=== PATIENT | male | born 1980 | race African-American/Black ===

== ENCOUNTER 2024-01-30 05:15 | Observation (INO) ==
--- NOTE | 2024-01-24 13:32 | Anesthesiology Consultation ---
Date of Service January 24, 2024 Assessment & Plan (1) Encounter for pre-operative examination: Chart Review Chart Review: Acceptable Risk for Surgery and Patient NOT seen in Pre Admission Testing - Will leave to anesthesiologist's discretion DOS if labs and/or EKG needed -Infectious Disease screening: Per PAT nursing assessment on 01/16/24. Pt resides at [facility]. No known infectious disease contacts in past 10 days or current infectious disease symptoms. No recent travel outside the country. Will order [place] for DOS History Surgery Operation Date: 01/30/24 07:00 Proposed Procedures p Right Shoulder Arthroscopy, Rotator Cuff Repair, Distal Clavicle Excision - Elvis Gordillo MD Height/Weight Height: 5 ft 9 in Weight: 76.657 kg Allergies Allergy/AdvReac Type Severity Reaction Status Date / Time shellfish derived Allergy Severe Anaphylaxis Verified 01/16/24 11:27 wool Allergy listed in Verified 01/16/24 11:27 medical hx Medications Home Medications Medication Instructions Recorded Confirmed Last Taken levothyroxine 100 mcg capsule 100 mcg PO DAILY 04/09/21 01/16/24 Unknown pantoprazole 20 mg tablet,delayed 20 mg PO DAILY 04/09/21 01/16/24 Unknown release Past Medical History Medical History Allergic rhinitis Anxiety Cervicalgia GERD (gastroesophageal reflux disease) Hypothyroidism Inmate in correctional facility Insomnia Major depressive disorder PTSD (post-traumatic stress disorder) Shoulder pain, right Past Surgical History Surgical History Surgical history unknown Social History Smoking Status: Unknown if ever smoked
[~2024-01-30 05:15] MED LIST: Patient's HEIGHT &/or WEIGHT Needed SCH; VANCOMYCIN CONSULT ACTIVE PRN
--- OUTSIDE RECORDS SUMMARY | 2024-01-30 05:25 | External Medical Summary | Continuity of Care Document ---
Author Name Unknown Organization [facility] [address] Address [address] [place], [place] [id number] Encounter [facility] [id number] Date(s): 01/12/24 - 01/12/24 [facility] [address] [facility] [address] [facility] [address] [place] [id number] Encounter Diagnosis Rotator cuff tear, right(Discharge Diagnosis) - 01/12/24 Discharge Disposition: Home or Self Care Attending Physician: IDANIA Donahue, Brigitte Roper Referring Physician: MD Rand, Elvis Broussard Allergies, Adverse Reactions, Alerts No Known Medication Allergies Substance Reaction Severity Status shellfish hives and cant breathe Activ e wool itch bumps Active Medications ibuprofen Start: 02/17/21 12:10:00 EDT Start Date: 02/17/21 Status: Ordered levothyroxine Start: 02/17/21 12:10:00 EDT, 100 mcg =, PO, Daily Start Date: 02/17/21 Status: Ordered pantoprazole Start: 02/17/21 12:10:00 EDT, 20 mg =, PO, Daily Start Date: 02/17/21 Status: Ordered Mental Status 01/12/24 Barriers to Learning one year None evide nt Mandatory Health Literacy Documentation Yes Health Literacy Communication Barriers N ever Primary Language Lao Problem List Condition Confirmation Course Effective Dates Status Health St atus Informant Neck pain Confirmed Active Rotator cuff tear, right Confirmed Active Left shoulder pain Confirmed Active Cervical spinal stenosis Confirmed Active Diagnosis Diagnosis Type Effective Dates Health Status Cl inical Service Informant Rotator cuff tear, right Discharge Diagnosis 01/12/24 Procedures Procedure Date Related Diagnosis Body Site Status Procedure - left elbow Co mpleted Vital Signs Most recent to oldest [Reference Range]: 1 Height 177 cm (01/12/24 10:56 AM) Patient Weight 78 kg (01/12/24 10:56 AM) Body Mass Index 24.9 kg/m2 (01/12/24 10:56 AM) Temperature [36.5-37.9 DegC] 36.4 DegC *LOW* (01/12/24 10:56 AM) Heart Rate 60 bpm (01/12/24 10:56 AM) Blood Pressure 140/80mmHg (01/12/24 10:56 AM) Cuff Pulse Pressure 60 mmHg (01/12/24 10:56 AM) Social History Social History Type Response Smoking Status Never smoked cigaret musa Sex Male Patient Care team information Care Team Related Persons Name: INDU NARAYAN Address: home [address] [place] [id number]
--- OUTSIDE RECORDS SUMMARY | 2024-01-30 05:25 | External Medical Summary | Continuity of Care Document ---
Author Name Unknown Organization [facility] [address] [place] [phone] Encounter [facility] [id number] Date(s): 10/02/23 - 10/02/23 [facility] JACY GRIFFITHS [address] [facility] [place] [address] [place] [address] [phone] Encounter Diagnosis Cervical stenosis of spine(Discharge Diagnosis) - 10/02/23 Right shoulder pain(Discharge Diagnosis) - 10/02/23 Discharge Disposition: Home or Self Care Attending Physician: MD Emelina, Calvin Saleh Referring Physician: DO Roldan Andrew J Allergies, Adverse Reactions, Alerts No Known Medication Allergies Substance Reaction Severity Status shellfish hives and cant breathe Activ e wool itch bumps Active Assessment and Plan Extracted from: Title:Follow Up Visit Author:IDANIA Preston, Supriya Sawant Date:10/02/23 This is a shared visit withDr. Tarango, please see his note for assessment and plan. Medications ibuprofen Start: 02/17/21 12:10:00 EDT Start Date: 02/17/21 Status: Ordered levothyroxine Start: 02/17/21 12:10:00 EDT, 100 mcg =, PO, Daily Start Date: 02/17/21 Status: Ordered meloxicam 15 mg oral tablet Start: 04/28/23 10:23:00 EDT, 1 tab, PO, Daily Start Date: 04/28/23 Status: Ordered Minipress Start: 11/28/22 13:27:00 EDT Start Date: 11/28/22 Status: Ordered pantoprazole Start: 02/17/21 12:10:00 EDT, 20 mg =, PO, Daily Start Date: 02/17/21 Status: Ordered SINEquan 10 mg oral capsule Start: 07/04/22 9:38:00 EDT, 1 cap, PO, Daily Start Date: 07/04/22 Status: Ordered Mental Status 10/02/23 Barriers to Learning one year None evide nt Mandatory Health Literacy Documentation Yes Health Literacy Communication Barriers N ever Primary Language Somali Problem List Condition Confirmation Course Effective Dates Status Health St atus Informant Neck pain Confirmed Active Rotator cuff tear, right Confirmed Active Left shoulder pain Confirmed Active Cervical spinal stenosis Confirmed Active Diagnosis Diagnosis Type Effective Dates Health Status Cl inical Service Informant Cervical stenosis of spine Discharge Diagnosis 10/02/23 Right shoulder pain Discharge Diagnosis 10/02/23 Procedures Procedure Date Related Diagnosis Body Site Status Procedure - left elbow Co mpleted Results Radiology Reports * Exam Date Time Procedure Performing Provider Status 10/02/23 11:20 AM XR Spine Cervical 2 or 3 Views Miya Kumar; Final Notes: (XR Spine Cervical 2 or 3 Views) Reason For Exam: neck pain XR Spine Cervical 2 or 3 Views EXAMINATION: XR Spine Cervical 2 or 3 Views CLINICAL HISTORY: M54.2: Cervicalgia; M54.2: Cervicalgia; neck pain COMPARISON: None FINDINGS: Right AP and lateral views of the cervical spine. On lateral view the cervical spine is visualized from craniocervical junction to T1. There is mild straightening without listhesis. There is normal vertebral body height. Moderate degenerative disc change extending from C3 through C7 where there is variable loss of disc space height, endplate osteophytes and uncinate spurring, most prominent at C3-4 and C5-6. Minimal degenerative changes of facetjoints. Precervical soft tissues are not thickened. Upper lungs are clear. IMPRESSION: Moderate multilevel degenerative disc changes, most prominent at C3-4 and C5-6. Workstation ID: [id number] Final Dictated by:MD Anna Pamela L Dictated DT/TM:10/02/2023 12:29 Signed by:MD Anna Pamela L Signed (Electronic Signature):10/02/2023 12:28 Social History Social History Type Response Smoking Status Never smoked cigaret musa Sex Male Ortho Outpt Note * MD Emelina, Calvin Saleh: PERFORM Event Display: Ortho Outpt Note Authored Date: [id number] Name:ARMEN LOPEZ Patient Number:[id number] :1980 Date of Service:10/02/2023 [place] seen in clinic today with Swathi Preston PA-C. This will be a shared visit with her. Please see a copy of Swathi's note for details of the history and physical examination. Armen denies any significant left upper extremity symptoms. He did have an elbow fracture as a child and had some sort of hardware in that elbow. He reports arthritisand some pain in that elbow but nosymptoms consistent with radiculopathy or myelopathy. He denies any bowel bladder dysfunction. He has no lower extremity symptoms. Imaging:Upright AP and lateral x-rays of the cervical spine wereobtained in the office today and personally interpreted by me. They show multilevel degenerative changeswithsignificant disc base height loss at C3-4 and C5-6 withpotential autofusion at those levels. Is got degeneration at all other levels of the cervical spine. He has a cervical MRI from January 2023. This is personally interpreted by me in the office as well. He hasmultilevel cervical stenosiswithstenosis both at the disc space levels and behind the vertebral bodies. This suggeststhat he possibly has a ossification of posterior longitudinal ligament. He does havemild stenosis centrally and bilateral foraminal stenosis at C3-4. He is got a cord compressionat C4-5 and C5-6 with foraminal stenosis as well. He got lessers central stenosis and foraminal stenosis at C6-C7. Assessment and plan:Armen is [id number] malewithmultilevel cervical stenosis. He doeshave some symptoms consistent withradiculopathyin his right upper extremityin the setting of multilevel cervical stenosis. Fortunately for himhe does not have any signs or symptoms consistent with spinal cord dysfunction. Nor does he haveanycord signal change on his MRI. Surgery would be an option for Armenbut that something is absolutely necessary. He has radiculopathy without weaknessand no myelopathy. If he did have surgery it would likely take the form of a multilevelanterior cervical discectomy and fusion. After discussingthe situation with Armen regarding his neck, specifically that hecould have surgery but does not need to have surgery, he has decided that he would like to havefurther injections of the cervical spinetry to help with his neck pain. He is also interested in having his shoulder repairedgiven the fact that he does not need to havecervical spine surgery. I filled outthe paperwork for the shelter and stated that he did not need to have cervical spine surgery. I recommendedcervical epidural steroid injections and [place]. I, Calvin Tarango, performed 100% of the medical decision makingfor this visit. That constitutes a substantiative portion of the encounter. Electronic Signature on File Electronically Reviewed/Signed by: Calvin Tarango MD Author Signature Dt/Tm:10/02/2023 01:37 PM Division of Orthopaedics [place] * IDANIA Preston, Swathi Sawant: PERFORM Event Display: Ortho Outpt Note Authored Date: [id number] Chief Complaint neck and right arm pain Referring Provider DO Roldan Andrew J Subjective This note was created using voice recognition software. This is a shared visit Dr. Tarango who performed 100% of medical decision making which was the substantial portion of the visit. Patient returns to the spine clinic today for surgical consultation with Dr. Tarango. [facility] and accompanied by 2 guards. I previously saw him 04/28/2023, please see that note for further details. At his appointment in April he was a new spine patient andhad a cervical MRI and had neck and mainly right upper extremity symptoms for years. He had been treated at [facility] and thinks he tried 3 to epidurals about a year ago that gave about 1 month of relief and also helped his arm pain. I did think that his upper extremity symptoms could be comingfrom his cervical spine as he did have central canal stenosis that was severe on his previous MRI but thankfully had no concerning exam findings. He was planning [facility] and I thought he needed to be evaluated by one of our spine surgeons before that appointment as if they thought spine surgery was needed it would most likely occur before the shoulder surgery. He has since seen Dr. Gordillo on 05/26/2023 and he was a candidate for surgery due to the progression of his right rotator cuff tear but since there was a likelihood he would need surgery for his cervical spine that was delayed as shoulder surgery recovery would be longer than surgery for his spine. Today he admits to neck and upper back pain. Thisgoes down his right upper extremity. He feels likehe is able to differentiate between his shoulder pain and the radiating pain. He has pain that goes along into his bicepand then his ulnar forearm gets numbwhich travels toall 5 fingers. Pain does not go below the elbow but he has numbness below the elbow. He feels like the arm is weak and will lock up. Has not done physical therapy for this. No change in control of his bowel or bladder. No issues with fine motor skills. No change in his balance. He does admit to tobacco use and uses chew pouches about 4-5 a day. Objective Physical Exam Patient is sitting in no acute distress. No cervical midline spinal tenderness to palpation. Upper extremity sensation intact to light touch bilaterally. 5/5 strength against resistance with master control technician, finger flexion, finger abduction, wrist flexion, wrist extension, elbow flexion, elbow extension, shoulder abduction bilaterally. Bicep and triceps reflexes are not hyperactive. No sustained clonus. No Colorado's. Assessment/Plan This is a shared visit withDr. Tarango, please see his note for assessment and plan. Electronic Signature on File Electronically Reviewed/Signed by: Swathi Preston PA-C Author Signature Dt/Tm:10/02/2023 12:05PM Division of Orthopaedics Electronically Reviewed/Signed by: Calvin Tarango MD Cosigner Signature Dt/Tm: 10/03/2023 01:24 PM Division of Orthopaedics DOROTEO Patient Care team information Care Team Related Persons Name: [facility] Address: home [address] [place] [phone]
--- OUTSIDE RECORDS SUMMARY | 2024-01-30 05:25 | External Medical Summary | Continuity of Care Document ---
Author Name Unknown Organization [facility] [address] [address] Address [address] [place], [place] [id number] [id number] Date[facility]s): 11/22/23 - 11/22/23 [facility] [address] [address] [facility] [address] [place] [id number] Encounter Diagnosis Rotator cuff tear, right(Discharge Diagnosis) - 11/22/23 Discharge Disposition: Home or Self Care Attending Physician: MD Rand, Elvis Broussard Allergies, Adverse [...] Start Date: 02/17/21 Status: Ordered Mental Status 11/22/23 Barriers to Learning one year None evide nt Mandatory Health Literacy Documentation Yes Health Literacy Communication Barriers N ever Primary Language Luxembourgish Problem List Condition Confirmation Course Effective Dates Status Health St atus Informant Neck pain Confirmed Active Rotator cuff tear, right Confirmed Active Left shoulder pain Confirmed Active Cervical spinal stenosis Confirmed Active Diagnosis Diagnosis Type Effective Dates Health Status Cl inical Service Informant Rotator cuff tear, right Discharge Diagnosis 11/22/23 Procedures Procedure Date Related Diagnosis Body Site Status Procedure - left elbow Co mpleted Vital Signs Most recent to oldest [Reference Range]: 1 Height 176 cm (11/22/23 1:17 PM) Patient Weight 79 kg (11/22/23 1:17 PM) Body Mass Index 25.5 kg/m2 (11/22/23 1:17 PM) Social History Social History Type Response Smoking Status Never smoked cigaret musa Sex Male Ortho Outpt Note * Lety Vazquez: PERFORM Lety Vazquez: PERFORM, MODIFY Lety Vazquez: MODIFY, MODIFY Lety Vazquez: MODIFY Event Display: Ortho Outpt Note Authored Date: [id number] Name:KATRIN LOPEZ Patient Number:[id number] :1980 Date of Service:11/22/2023 CHIEF COMPLAINT: F/u right shoulder pain HPI: [id number] [facility] inmate who presents today for f/u of right shoulder pain. Patient was previously seen by Dr. Tarango at [facility] and understands surgery is an option but is proceeding with cortisone injections as a conservative measure for now. He still experiences pain and locking in his rightanterior shoulder. Patient also experiences wrist pain. His pain is present when he is sleeping. He denies bleeding issues, previous blood clot, allergy to metal or nickel, Staph or MRSA infection, heart disease, HTN, diabetes, or lung, liver, or kidney disease. He also notes that he occasionally gets paresthesias in all 4 extremities. PHYSICAL EXAM: Focusing on the patient'srightupper extremity: Right shoulder ROM: Forward elevation 170/ ER at side 40/ IRup backT-12 Right Liftoffintact Positive tenderness at the anterolateral acromion and bicipital groove AC joint is non-tender Motor function:5/5Shoulder IR, shoulder ER, shoulder flexion There is pain with most movements especially at the end movementand what he describes as a locking up feeling. RADIOGRAPHY: MRI of the right shoulder obtained in 01/2023 reviewed by me showsAC joint arthritis and supraspinatus rotator cuff tear IMPRESSION: 43-year-old male 1) Right shoulder rotator cuff supraspinatustear and AC joint arthritis 2) Multilevel cervical stenosis PLAN: - I discussed the patient's treatment options of conservative management versus surgical intervention and they will elect to proceed with surgery. Surgical plan to include right shoulder arthroscopy,rotator cuff repair, and excision of distal clavicle. Rehabilitation plan discussed. Reviewed risksand benefits of surgery, alternatives, and expected outcomes. All questions were answered. Informedconsent was signed. - They will follow-up to have a preoperative history and physical examination completed. - Patient understands he may be transferred to [place] for post-op physical therapy. He will need specialized physical therapy. Thepostop activity restrictions and timeframe for rotator cuff repairrecovery is discussed. Dr. villarreal note is reviewed. ATTESTATION: I, Lety Vazquez, have scribed for, and in the presence of, Elvis Gordillo, on thisdate,11/22/2023 13:44:40. Electronic Signature on File Electronically Reviewed/Signed by: Lety Vazquez Author Signature Dt/Tm:11/22/2023 02:03 PM Electronically Reviewed/Signed by: Elvis Gordillo MD Cosigner Signature Dt/Tm: 11/23/2023 04:03 PM Division of Sports Medicine OA Patient Care team information Care Team Related Persons Name: [facility] Address: home [address] [place] [address] [place] [phone]
[2024-01-30] MEDS: VANCOMYCIN HCL 1,250 MG in SODIUM CHLORIDE 0.9% 250 ML IV SCH (05:38)
[2024-01-30] MEDS: LR 15ML/HR IV SCH ×2 (05:39)
[2024-01-30] MEDS ORDERED: VANCOMYCIN HCL 1,250 MG in SODIUM CHLORIDE 0.9% 500 ML IV SCH (06:00)
[2024-01-30] MEDS ORDERED: BUPIVACAINE 0.5 % 5 MG/1 ML PF 10ML VIAL ONE (06:39)
[2024-01-30] MEDS ORDERED: LIDOCAINE 2% 2 ML VIAL/AMP(20MG/ML) INFIL ONE (07:59)
[2024-01-30] MEDS ORDERED: ONDANSETRON INJ 2 MG/ML 2 ML VIAL ONE (07:59)
[2024-01-30] MEDS ORDERED: DEXAMETHASONE SOD INJ 4 MG/ML VIAL ONE (07:59)
[2024-01-30] MEDS ORDERED: PROPOFOL IV EMULSION 10 MG/ML 20 ML VIAL IV ONE (07:59)
[2024-01-30] MEDS ORDERED: fentaNYL citrate PF 100 MCG/2 ML VIAL ONE ×4 (08:00→13:16)
[2024-01-30] MEDS ORDERED: MIDAZOLAM HCL 1 MG/ML 2ML VIAL ONE (08:00)
--- NOTE | 2024-01-30 08:24 | History & Physical Bridge Note ---
Date of Service January 30, 2024 History & Physical Bridge Note I have examined the patient, reviewed the History & Physical and in the interval since the performance of the History & Physical I have noted the following changes of clinical significance: no changes noted
[2024-01-30] MEDS ORDERED: PROMETHAZINE HCL 6.25 MG in SODIUM CHLORIDE 0.9% 50 ML IV PRN (08:37)
[2024-01-30] MEDS ORDERED: ATROPINE SULFATE 0.1 MG/ML 10ML SYR IV PRN (08:37)
[2024-01-30] MEDS ORDERED: fentaNYL citrate PF 100 MCG/2 ML VIAL IV PRN (08:37)
[2024-01-30] MEDS ORDERED: HYDROmorphone INJ 2 MG/ML SYR/VIAL IV PRN (08:37)
[2024-01-30] MEDS ORDERED: ePHEDrine sulfate 50 MG/ML AMP IV PRN (08:37)
[2024-01-30] MEDS ORDERED: ONDANSETRON INJ 2 MG/ML 2 ML VIAL IV PRN ×2 (08:37→15:35)
[2024-01-30] MEDS: TRANEXAMIC ACID 1,000 MG **IV Pre-op IV SCH (08:50)
[2024-01-30] MEDS: EpINEphrine HCL INJ 1 MG/ML 1ML SYRINGE IR ONE (10:15)
[2024-01-30] MEDS ORDERED: ROCURONIUM BROMIDE 10 MG/ML 5 ML VIAL IV ONE (13:16)
[2024-01-30] MEDS: LIDOCAINE 1%/EPINEPHRINE 1:100,000 50 ML VIAL ONE (13:18)
--- NOTE | 2024-01-30 13:32 | Operative Report ---
Post Operative Report Pre & Post Diagnosis Operation Date: 01/30/24 08:40 Pre-Op Diagnosis: Right Shoulder Rotator Cuff Tear. Distal clavicle pain Post-Op Diagnosis: Right Shoulder Rotator Cuff Tear, Posterior labral tear and capsular tear. Distal clavicle pain I identified the patient and participated in the time-out.: Yes Procedure Operation Date: 01/30/24 08:40 Actual Procedures p Right Shoulder Arthroscopy, Rotator Cuff Repair, Right Distal Clavicle Excision, Right labral debridement, Right posterior capsular repair, Acromial decompression(Right) - Elvis Gordillo MD Surgeon Elvis Gordillo MD Mortgage [employer]er Brigitte Donahue physicians orthotics prosthetics assistant no resident available Estimated Blood Loss 15 Findings Consistent with Post-Op Diagnosis Specimens Distal clavicle Anesthesia Type General Regional Complications none Disposition Accompanied Patient To Recovery: No Disposition: Recovery Room Indications Armen is 43. Right shoulder pain felt to be secondary to distal clavicle degenerative change and a rotator cuff tear. Due to failure of conservative treatment he is elected to proceed with operative intervention. Description of Procedure Informed consent obtained. Patient identified. He identified the operative site as the right shoulder which I marked with my initials. A preoperative surgical timeout performed. Preop dose of IV antibiotics was given. He was taken to the operating room positioned supine on the OR table. While he was awake he was positioned beachchair with his neck held in neutral alignment due to his cervical spine condition. The tenent body positioner was locked into that position. He was then returned supine anesthetized and returned to the after mentioned position. The heels were padded foot pumps were utilized. The knees were flexed the torso secured to the table tenent body positioner and tremano arm holders were utilized. The neck was held in neutral physiologic alignment. The arm was prepped and draped in usual sterile fashion. Posterior soft spot viewing portal followed by an anterior low mid glenoid working portal. Diagnostic arthroscopy was performed. The articular surfaces of the glenoid and humeral head were unremarkable. There was some posterior superior biceps anchor fraying which was debrided. The anterior and inferior labrum was intact. Rotator interval normal. Biceps tendon normal and did not subluxate. There was some undersurface fraying of the subscapularis without full-thickness or significant partial-thickness tearing. Minor debridement performed. The rotator cuff undersurface of the supraspinatus was intact and after debriding I was able to create a small rent in this indicating a full- thickness rotator cuff tear with the most deep fibers for a couple millimeters intact. Anterior capsule intact. The scope was placed anterior to visualize posterior structures. A posterior superior labral tear was identified. This was a flap of labrum which was debrided along with the posterior superior biceps anchor fraying. The posterior capsule was intact and the posterior inferior labrum was okay. There was a longitudinal split in the posterior capsule. This went from the posterior inferior glenoid out to the humeral head at about the 7 o'clock position. I went ahead and inserted from posteriorly a spectrum shallow up and applied a stitch across the more medial portion and then tied. I then inserted an 8 mm cannula and inserted used the curved to the left Spectrum to do the more lateral. Bites only of the capsule were obtained. The scope was placed anterosuperior. An accessory anterosuperior portal was created. The 70 degree scope was utilized. The repair was done with 0 PDS tied with a modified [place] knot backed up with reverse half hitches on alternating posts. SCOI placed in subacromial space. A crescent shaped 2 cm supraspinatus tear was identified which began just posterior to the biceps tendon. There was hypertrophy of the greater tuberosity which I debrided with the bur to a denuded bed throughout. The medial intact rotator cuff was left intact. A thorough bursectomy was performed. There was evidence of chronic impingement. I then went ahead and inserted two 4.75 mm swivel lock anchors loaded with tapes. These were the knotless type. They were placed just lateral to the articular cartilage margin. Very hard bone. Required the green awl then the silver awl. Anchors inserted and the suture tapes and the knotless mechanism were both passed up through the rotator cuff. The suture tapes I passed up through the more superficial delaminated portion. The deeper portion attached to the rotator cuff I passed the stitches for the knotless mechanism up through both of these. I then went ahead and did a double row repair with a 4.7 x 5 mm swivel locks laterally with a secure and well covered repair. I used the anterior knotless mechanism from the swivel lock to tie down the dogear. I then passed the suture for the posterior anchor through the anterior anchor and vice versa to create a medial seal from anterior to posterior. All sutures were were cut. I inspected intra-articularly and the repair was good. Care was taken to ensure that the biceps was left on unencumbered which it was. I then went and did a modified cutting block acromioplasty removing about 2 to 4 mm of anterior bone. I also relieved some lateral overhang by about 2 mm. Lateral and anterior. Shaver run through the shoulder to pick pulling machine tender loose debris. I then made a 3 cm longitudinal incision parallel to the AC joint and over top of it. I dissected down to the level of the deltotrapezial fascia and divided in line with the distal shaft of the clavicle. The distal clavicle was exposed and the distal approximately 7 mm was resected and sent for specimen. It did appear to be somewhat soft consistent with possibly with osteolysis. Irrigation performed and the deltotrapezial fascia was closed with 0 Vicryl followed by 2-0 Vicryl for the skin and 4-0 nylon sutures for the skin and portals. Horizontal mattress simple's and portal stitches. Meticulous hemostasis was achieved with the distal clavicle excision. The arm was cleaned with wet and dry sponges a soft roll dressing was applied Xeroform 4 x 4's ABDs including the armpit and an UltraSling. Patient was then awakened from anesthesia without difficulty and taken to the recovery room in stable condition resected distal clavicle sent for specimen. Counts were correct blood loss was estimated to be 15 cc. At the conclusion of the operation there was no one available to speak to. The patient is incarcerated. He will be admitted to the hospital for pain control and postop IV antibiotics. He will have therapy according to the standard rotator cuff repair protocol with passive range of motion. He can do active movement of hand wrist and elbow. We will also protect the posterior capsule. I attest to the content of the Intraoperative Record and any orders documented therein. Any exceptions are noted below.
--- NOTE | 2024-01-30 13:44 | Operative Report ---
Post Operative Report Pre & Post Diagnosis Operation Date: 01/30/24 08:40 Pre-Op Diagnosis: Right Shoulder Rotator Cuff Tear Post-Op Diagnosis: Right Shoulder Rotator Cuff Tear I identified the patient and participated in the time-out.: Yes Procedure Operation Date: 01/30/24 08:40 Actual Procedures p Right Shoulder Arthroscopy, Rotator Cuff Repair, Right Distal Clavicle Excision, Right labral debridement, Right posterior capsular repair, Acromial decompression(Right) - Elvis Gordillo MD Surgeon Elvis Gordillo M.D. Welder Machine Operator Brigitte Donahue physicians event sales assistant no resident available Estimated Blood Loss 15 Findings Consistent with Post-Op Diagnosis Rotator cuff tear right shoulder Specimens None Anesthesia Type General Regional Description of Procedure Patient was taken to the operating room and placed under general anesthesia. He was given a preoperative peripheral nerve block. He was given IV vancomycin preoperatively. He was given TXA preoperatively. Time out was performed. He was prepped and draped in routine sterile fashion. Is present during the entire case and assisted with positioning, instrumentation, tissue retraction, repair of the rotator cuff and distal incision. Please see Dr. Gordillo's operative report for further detail. Patient was awakened and transferred to cart room in stable condition. I attest to the content of the Intraoperative Record and any orders documented therein. Any exceptions are noted below.
--- NOTE | 2024-01-30 14:32 | Anesthesiology Progress Note ---
Date of Service January 30, 2024 Anesthesia Post Procedure Vital Signs Vital Signs: Temp Pulse Resp BP Pulse Ox O2 Del Method O2 Flow Rate 01/30/24 14:20 36.6 C 73 16 118/67 100 Nasal Cannula 2 01/30/24 14:10 77 12 122/73 100 Nasal Cannula 2 01/30/24 14:00 81 12 118/70 99 Oxymask 2 01/30/24 13:50 74 20 134/76 98 Oxymask 6 01/30/24 13:42 36.2 C L 68 12 130/68 96 Oxymask 6 01/30/24 05:45 36.8 C 68 20 144/87 H 100 Room Air Pain Intensity Right Shoulder: Pain Intensity: 0 Transfer of Care Handoff Completed per policy Notes Mental Status: alert / awake / arousable and participated in evaluation Patient Amnestic to Procedure: Yes Nausea / Vomiting: adequately controlled Pain: adequately controlled Airway Patency, RR, SpO2: stable & adequate BP & HR: stable & adequate Hydration State: stable & adequate Anesthetic Complications: no major complications apparent
[2024-01-30] MEDS ORDERED: HYDROmorphone INJ 0.5 MG/0.5 ML SYR IV PRN (15:35)
[2024-01-30] MEDS ORDERED: diphenhydrAMINE 50 MG/ML VIAL IV PRN (15:35)
[2024-01-30] MEDS ORDERED: VANCOMYCIN CONSULT ACTIVE PRN (15:35)
[2024-01-30] MEDS ORDERED: NALOXONE HCL 0.4 MG/1 ML VIAL/CARP IV PRN (15:35)
[2024-01-30] MEDS ORDERED: METOCLOPRAMIDE HCL INJ 5 MG/ML 2 ML VIAL IV PRN (15:35)
[2024-01-30] MEDS ORDERED: bisacodyL 10 MG SUPP PR PRN (15:35)
[2024-01-30] MEDS ORDERED: MAGNESIUM HYDROXIDE SUSP 30 ML UDC PO PRN (15:35)
[2024-01-30] MEDS ORDERED: TAMSULOSIN HCL 0.4 MG CAP PO PRN (15:45)
[2024-01-30] MEDS: SODIUM CHLORIDE 0.9% 1,000 ML IV SCH (16:24)
[2024-01-30] MEDS: ACETAMINOPHEN 500 MG TAB PO SCH (16:24)
[2024-01-30] MEDS: oxyCODONE HCL IR 5 MG TAB (IMMEDIATE RELEASE) PO PRN (16:26)
[2024-01-30] MEDS: VANCOMYCIN HCL 1,250 MG in SODIUM CHLORIDE 0.9% 500 ML IV SCH (17:48)
--- NOTE | 2024-01-30 18:01 | Orthopedic Progress Note ---
Date of Service January 30, 2024 Assessment & Plan (1) Rotator cuff tear: Plan: Stable postop. Discussed surgery and pain control. Continue IV antibiotics for 24 hours postoperative. Restrictions on movement of the shoulder discussed. He can do active movement of hand wrist and elbow only. Stay in the sling. Admission and Anticipated Discharge Date Admission Date: January 30, 2024 Subjective Doing well. Pain well-controlled. We discussed the results of surgery. Physical Exam Physical Exam: The peripheral nerve block is still working. The arm is mildly swollen. He can slightly wiggle his fingers but cannot do a detailed motor exam. Radial pulses 1+.He can move his left arm and both legs without difficulty. No significant change in neck symptoms. Results & Data Vital Signs (Past 12 Hours) Vital Signs Temp Pulse Pulse Resp BP Pulse Ox O2 Del Method 01/30/24 17:37 37.0 C 82 18 124/72 97 Room Air 01/30/24 16:21 36.5 C 69 18 117/74 95 Room Air 01/30/24 15:56 36.5 C 70 16 127/72 98 Room Air 01/30/24 15:20 36.7 C 76 16 131/75 99 Room Air 01/30/24 15:05 73 14 122/78 100 Nasal Cannula 01/30/24 14:50 69 12 121/79 100 Nasal Cannula 01/30/24 14:35 71 12 123/74 100 Nasal Cannula 01/30/24 14:20 36.6 C 73 16 118/67 100 Nasal Cannula 01/30/24 14:10 77 12 122/73 100 Nasal Cannula 01/30/24 14:00 81 12 118/70 99 Oxymask 01/30/24 13:50 74 20 134/76 98 Oxymask 01/30/24 13:42 36.2 C L 68 12 130/68 96 Oxymask O2 Flow Rate 01/30/24 17:37 01/30/24 16:21 01/30/24 15:56 01/30/24 15:20 01/30/24 15:05 2 01/30/24 14:50 2 01/30/24 14:35 2 01/30/24 14:20 2 01/30/24 14:10 2 01/30/24 14:00 2 01/30/24 13:50 6 01/30/24 13:42 6
[2024-01-30] MEDS: HYDROmorphone INJ 1 MG/ML SYRINGE IV PRN (19:00)
[2024-01-30] MEDS: TRANEXAMIC ACID / 0.7% NACL 1,000 MG/100 ML BAG IV SCH (19:20)
[2024-01-30] MEDS: DOCUSATE SODIUM 100 MG CAP PO SCH (21:16)
[2024-01-31] MEDS: LEVOTHYROXINE SODIUM 100 MCG TABLET PO SCH (05:03)
[2024-01-31 07:40] LABS: Hemoglobin 12.1 g/dl (14.0-18.0); Mean Corpuscular Hemoglobin 30.4 pg (25.0-34.0); Mean Corpuscular Hgb Conc 35.6 g/dL (32.0-36.0); Mean Corpuscular Volume 85.4 fL (80.0-100.0); Mean Platelet Volume 12.1 fL (9.4-12.4); Platelet Count 167 K/uL (130-400); RDW Coefficient of Variation 11.4 % (11.5-14.5); RDW Standard Deviation 35.6 fL (36.4-46.3); Red Blood Count 3.98 M/uL (4.70-6.10); White Blood Count 6.58 K/ul (4.8-10.8)
[2024-01-31 08:02] LABS: Calcium 7.9 mg/dl (8.6-10.3); Creatinine Clr Calc Pharmacy 104.8 ml/min; Est GFR (African American) 119.7 ml/min; Est GFR (Non-African American) 103.3 ml/min
[2024-01-31] MEDS: KETOROLAC 30 MG/ML VIAL IV PRN (08:14)
[2024-01-31] MEDS: traMADol HCL 50 MG TABLET PO PRN (08:50)
[2024-01-31] MEDS: MULTIVITAMIN TAB PO SCH (08:51)
[2024-01-31] MEDS: PANTOprazole 40 MG TAB PO SCH (08:51)
[2024-01-31] MEDS ORDERED: PANTOprazole 40 MG TAB PO SCH (09:00)
--- NOTE | 2024-01-31 11:12 | Orthopedic Progress Note ---
Date of Service January 31, 2024 Assessment & Plan (1) Rotator cuff tear: Plan: Postop day 1-Dr. Gordillo-status post right shoulder arthroscopy, subacromial decompression, distal clavicle excision and rotator cuff repair Continue the sling and abduction pillow at all times. May be comfortable with head of bed elevated or propped up on pillows. Allowed for gentle active range of motion of the fingers wrist forearm and elbow as tolerated. PT and OT as ordered. Pain medication as prescribed. He has Tylenol scheduled, oxycodone p.o., IV Dilaudid and IV Toradol. He can alternate these for adequate pain control. Ice to the right shoulder at all times to relieve pain and discomfort. Ambulation, MARGARITA stockings and AV impulse boots for DVT prophylaxis. He may be out of bed as tolerated. Continue regular diet. Home medications have been continued. Due to inadequate pain control at this time we will plan to leave here another day for pain control. Will discuss findings with Dr. Gordillo. Will plan for discharge to correctional facility tomorrow. All questions were answered. Patient understands and agrees with the plan. Admission and Anticipated Discharge Date Admission Date: January 30, 2024 Subjective Patient is sitting up in bed. Mild discomfort due to pain. His nurse notified us this morning of his increased pain of throughout the night. We added Toradol which she states did help cut back on the intensity of the pain. He notes throbbing discomfort in the shoulder that radiates down to his elbow. He occasionally gets some sharp stabbing pains. He is kept the sling in place. He is right-hand dominant. He occasionally has some tingling of his small and ring finger as well as his index and middle finger of the right hand. He does feel that the nerve block is worn off. Denies any postoperative nausea or vomiting. Denies any chest pain or shortness of breath. Physical Exam Musculoskeletal: Exam of his right upper extremity: His postoperative dressings are clean, dry and intact. The sling and abduction pillow are in place. He has full motor function of the fingers wrist forearm and elbow with normal strength. Wrist range of motion and forearm range of motion and elbow range of motion cause discomfort in the shoulder. He is able to move his neck comfortably without significant discomfort. He does have some paresthesias of the volar surface of the index middle ring and small finger. Capillary fill is brisk. Distal pulses are 1+. He is able to fully make a fist of the right hand. Skin is intact. He has some mild edema down of the upper arm that does not past the elbow. There are no skin blisters present. Results & Data Vital Signs (Past 12 Hours) Vital Signs Temp Pulse Resp BP Pulse Ox O2 Del Method 01/31/24 07:17 36.8 C 54 L 18 143/81 H 98 Room Air 01/31/24 03:07 36.9 C 54 L 18 136/76 95 Room Air Laboratory Results 01/31/24 01/30/24 Range/Units 06:50 15:53 WBC 6.58 (4.8-10.8) K/ul RBC 3.98 L (4.70-6.10) M/uL Hgb 12.1 L (14.0-18.0) g/dl Hct 34.0 L (42.0-52.0) % MCV 85.4 (80.0-100.0) fL MCH 30.4 (25.0-34.0) pg MCHC 35.6 (32.0-36.0) g/dL RDW Std Deviation 35.6 L (36.4-46.3) fL RDW Coeff of Shalonda 11.4 L (11.5-14.5) % Plt Count 167 (130-400) K/uL MPV 12.1 (9.4-12.4) fL Sodium 137 (136-145) mmol/L Potassium 4.0 (3.5-5.1) mmol/L Chloride 109 H (98-107) mmol/L Carbon Dioxide 22 (21-32) mmol/L Anion Gap 6 (3-11) BUN 16 (6-23) mg/dl Creatinine 0.89 (0.6-1.4) mg/dl Est Cr Clr Drug Dosing 104.8 ml/min Est GFR ( Amer) 119.7 ml/min Est GFR (Non-Af Amer) 103.3 ml/min BUN/Creatinine Ratio 18.0 (10-20) Glucose 88 (70-99(Fasting)) mg/dl Calcium 7.9 L (8.6-10.3) mg/dl Nasal Screen MRSA (PCR) Negative (Negative)
--- NOTE | 2024-02-01 12:18 | Discharge Summary ---
Date of Service February 01, 2024 Discharge Data Procedures Performed Operation Date: 01/30/24 08:40 Actual Procedures p Right Shoulder Arthroscopy, Rotator Cuff Repair, Right Distal Clavicle Excision, Right labral debridement, Right posterior capsular repair, Acromial decompression(Right) - Elvis Gordillo MD Hospital Course (1) Rotator cuff tear: Duration at [facility] after undergoing an elective right shoulder arthroscopy, subacromial decompression, distal clavicle excision and rotator cuff repair. His surgery was performed with general anesthesia and peripheral nerve block. He was given 2 g of IV vancomycin for surgical prophylaxis which was continued for 24 hours. He was given 1 g of TXA preoperatively and 1 g of TXA 6 hours after that initial dose. He was kept overnight for pain control. He was given IV Dilaudid, oxycodone, Tylenol and tramadol for postoperative pain control. He was allowed out of bed, weight-bear as tolerated on bilateral lower extremities. He was placed in a sling with an abduction pillow on the right upper extremity was advised to keep that on at all times. Physical therapy and Occupational Therapy was ordered and he was seen a nd evaluated by them and taught range of motion of the hand fingers wrist and elbow. On postoperative day 1 he was evaluated and had significant pain throughout the night. Toradol 30 mg IV every 6 hours was added to his pain medication regimen. He tolerated regular diet. His home medications were continued. Due to his inadequate pain control he was kept overnight for observation. On postoperative day 2 his dressings were changed to the right shoulder. The incisions are clean, dry and intact new dressings were applied. Discharge instructions were reviewed. Follow-up appointment has been scheduled. All questions were answered. He was deemed safe for discharge back to his correctional facility. He was discharged to [facility] on February 01, 2024.
--- NOTE | 2024-02-01 12:43 | Orthopedic Progress Note ---
Date of Service February 01, 2024 Assessment & Plan (1) Status post arthroscopy of right shoulder: Plan: The patient was educated regarding today's findings. His dressings were changed today by me. Gauze and Tegaderm were applied. He may get the area wet in the shower but should keep it protected. Avoid scrubbing. Dressings may be changed at the [facility] as needed. Continue use of his sling. Start physical therapy at the senior living. Only passive motion of the shoulder. Follow-up with Dr. Gordillo in 2 weeks for suture removal. Continue Tylenol and Motrin every 6 hours as needed for discomfort. Continue ice application for pain control. Admission and Anticipated Discharge Date Admission Date: January 30, 2024 Subjective This 43-year-old male is seen today in his room. He is 2 days status post right shoulder arthroscopy with subacromial decompression and rotator cuff repair. He continues to have some pain in his shoulder. He notes some minor tingling in his fingers. No other complaints. He denies any chest pain, shortness of breath, nausea, vomiting, or numbness. He did require some IV Dilaudid overnight. Pain has been controlled today with oral oxycodone. He has not been tachycardic despite his complaints of pain. He is scheduled to go back to the senior living today. Physical Exam Physical Exam: General: Well-developed, well-nourished, middle-aged male, in no acute distress. Laying in bed. Alert and oriented. He has his sling in place. Skin: Warm and dry with good turgor. Postsurgical dressing is in place on the right shoulder. Upon removal, he has healing surgical incisions. Sutures are intact. Wound edges are well-approximated. No erythema or warmth. No drainage. Expected postoperative edema. No ecchymosis yet. Neurologic: Gross sensation is intact across the right arm by soft touch. Sensation is intact to the each of the digits by soft touch. Peripheral pulses are 2+. Musculoskeletal: The patient has full supination and pronation of the wrist. Intact motor function of the digits. He has normal thumb extension, wrist extension, finger abduction, as well as pinch 911 dispatcher. Shoulder motion was not attempted. Results & Data Vital Signs (Past 12 Hours) Vital Signs Temp Pulse Resp BP Pulse Ox O2 Del Method 02/01/24 07:17 36.9 C 58 L 16 155/85 H 97 Room Air
== END 2024-02-01 14:09 ==
LOC: ASU 05:15 → 3N 05:15